=== PATIENT | male | born 1960 | race African-American/Black ===

== ENCOUNTER 2018-07-10 12:44 | Emergency (ER) | payer MEDICARE, OTHER ==
[~2018-07-10] VITALS: Ht 175.3 cm; Wt 75.0 kg
[~2018-07-10 12:44] MED LIST: ASPI-556 PO; BENA5TAB26 PO; METF500T7 PO
[2018-07-10 12:59] LABS: GLUCOSE,POINT OF CARE 146 MG/DL (70-110)
[2018-07-10] MEDS ORDERED: LISI-660 PO (13:09)
[2018-07-10] MEDS ORDERED: GABA-531 PO (13:09)
[2018-07-10] MEDS ORDERED: ACETAMINOPHEN 500 MG TABLET PO ONE (16:00)
[2018-07-10 16:46] VITALS: BP 127/74
== END 2018-07-10 16:48 | disposition home or self-care (01) ==
LOC: EMS 12:45
DX: H60.92 Unspecified otitis externa, left ear (principal); R03.0 Elevated blood-pressure reading, without diagnosis of hypertension; E11.9 Type 2 diabetes mellitus without complications; I10 Essential (primary) hypertension; F17.210 Nicotine dependence, cigarettes, uncomplicated; Z79.82 Long term (current) use of aspirin; Z79.899 Other long term (current) drug therapy; Z79.84 Long term (current) use of oral hypoglycemic drugs